=== PATIENT | male | born 2005 | race Caucasian/White ===

== ENCOUNTER 2025-10-25 01:29 | Emergency (ER) | payer OTHER, SELFPAY ==
--- NOTE | 2025-10-25 01:30 | ED.GENADULT ---
HPI - General Adult General Date Seen: 10/25/25 Chief complaint: Dental/Oral/Mouth Injury/Pain Stated complaint: toothpain Time Seen by Provider: 10/25/25 01:30 History of Present Illness HPI narrative: 20-year-old previously healthy male presenting to the ER [facility] with his girlfriend for evaluation of dental pain. For the past couple of days he has been experiencing pain affecting his posterior molar of his right mandible. He says he thinks is probably coming from his wisdom tooth. He does not have any history of dental caries there or known cavities. No injuries. No dental fractures. He was initially experiencing some fairly mild pain which was tolerable and manageable at home with [id number] medications. However tonight the pain got worse and he is now it unable to sleep so he came here to the ER. He is not noticing any swelling of his gums, tongue, under his chin, or his cheek. No fever. No trouble swallowing. No trouble breathing. He has no history of immunosuppression or diabetes. Related Data Home Medications ?Medication ?Instructions ?Recorded ?Confirmed No Known Home Medications 10/25/25 10/25/25 Allergies Allergy/AdvReac Type Severity Reaction Status Date / Time No Known Drug Allergies Allergy Verified 10/25/25 01:35 [facility] Medical History (Updated 10/25/25 @ 01:45 by Edwardo Higgins MD) No significant past medical history Surgical History (Updated 10/25/25 @ 01:36 by Selvin Matthew RN) No significant past surgical history Social History Smoking Status: Current every day smoker Do you use any of these nicotine containing products: Vaping Products Second hand tobacco smoke exposure: Yes How often do you have a drink containing alcohol: never AUDIT-C Alcohol total score: 0 Non-prescribed substance use: marijuana (any form) Exam Narrative: Exam Narrative: Constitutional: Appears well-developed and well-nourished. Alert. Conversant. Non toxic. HENT: Head: Atraumatic. Nose: Nose normal. Mouth/Throat: Oral mucosa is clear and moist. no trismus. Pharynx normal. Tonsils symmetric. No tonsillar enlargement, erythema, or exudate. Eyes: Conjunctivae normal. EOM normal. Pupils equal, round, and reactive to light. No scleral icterus. No trismus. Generally very good dentition. He does have a metal cap or feeling on his left mandibular anterior molar. Otherwise I do not see a lot of dental caries or feelings. I can see that he was some tooth on the right mandible is erupting. Other wisdom teeth are not visible on my exam. I do not see any surrounding gingival erythema, swelling. No gingival abscess. No submandibular swelling. No trismus. No facial swelling. No buccal abscess. Hard palate, soft palate, uvula, pharynx are normal. Neck: Normal range of motion. Neck supple. No tracheal deviation present. Cardiovascular: Normal rate, regular rhythm. No gallop. No friction rub. No murmur heard. Pulmonary/Chest: Effort normal. No stridor. No respiratory distress. No wheezes. No rales. No rhonchi . Musculoskeletal: RUE: Normal range of motion. No tenderness. No deformity LUE: Normal range of motion. No tenderness. No deformity RLE: Normal range of motion. No edema. No tenderness. No deformity LLE: Normal range of motion. No edema. No tenderness. No deformity Lymph: No cervical adenopathy. Neurological: Alert and oriented to person, place, and time. Normal strength. CN II-VII intact. No sensory deficit. GCS eye subscore is 4. GCS verbal subscore is 5. GCS motor subscore is 6. Normal coordination Skin: Skin is warm and dry. No rash noted. No pallor. Normal capillary refill. Psychiatric: Normal mood. Normal affect. Const: Vital Signs, click to edit/add: Vital Signs - 24 hr 10/25/25 01:34 10/25/25 01:48 10/25/25 01:50 Temperature 98.3 F 98.3 F 98.3 F Pulse Rate [Right Pulse Oximeter] 75 70 Respiratory Rate 18 18 Blood Pressure [Ri ght Upper Arm] 170/97 H 162/84 H Pulse Oximetry 99 99 Oxygen Delivery Me thod Room Air Room Air 10/25/25 01:51 Temperature 98.3 F Pulse Rate [Right Pulse Oximeter] 70 Respiratory Rate 18 Blood Pressure [Ri ght Upper Arm] 162/84 H Pulse Oximetry Oxygen Delivery Me thod Course Vital Signs Vital signs: Initial Vital Signs Temperature 98.3 F 10/25/25 01:34 Temperature Source Temporal Artery Scan 10/25/25 01:34 Pulse Rate 75 10/25/25 01:34 Respiratory Rate 18 10/25/25 01:34 Blood Pressure 170/97 H 10/25/25 01:34 Blood Pressure Mean 121 H 10/25/25 01:34 Blood Pressure Position Sitting 10/25/25 01:34 Pulse Oximetry 99 10/25/25 01:34 Oxygen Delivery Method Room Air 10/25/25 01:34 Vital Signs Temperature 98.3 F 10/25/25 01:34 Pulse Rate 75 10/25/25 01:34 Respiratory Rate 18 10/25/25 01:34 Blood Pressure 170/97 H 10/25/25 01:34 Pulse Oximetry 99 10/25/25 01:34 Oxygen Delivery Method Room Air 10/25/25 01:34 Temperature 98.3 F 10/25/25 01:51 Pulse Rate 70 10/25/25 01:51 Respiratory Rate 18 10/25/25 01:51 Blood Pressure 162/84 H 10/25/25 01:51 Pulse Oximetry 99 10/25/25 01:50 Oxygen Delivery Method Room Air 10/25/25 01:50 Medications Administered Medications: Discontinued Medications Generic Name Dose Route Start Last Admin Trade Name Freq PRN Reason Stop Dose Admin Hydrocodone Bitart/Acetaminophen 1 tab 10/25/25 01:42 10/25/25 01:48 Hydrocodone-Acetamin 5-325 Mg 1 Tab PO 10/25/25 01:43 1 tab ONCE ONE Administration Medical Decision Making [facility] Narrative Medical decision making narrative: This patient presents with a tooth ache involving his right mandibular wisdom tooth. The differential diagnosis includes: cracked tooth syndrome, pulpitis, sub-apical abscess, amongst others. I suspect the pain may be related to eruption of the wisdom tooth or possible impaction. There is no abscess detected around the tooth amenable to incision and drainage. There is no evidence of buccinator/canine space infections, significant facial swelling, or Ryder's angina. There are no posterior pharyngeal space infections detected. Suspect pulpitis. Treatment with NSAID, antibiotics. Instymeds prescription for Bucyrus -10 tablets-provided. Will also start the patient on amoxicillin in case there is an evolving pulpitis or other infection here. Opiate precautions reviewed. Follow up with a dentist/certified master locksmith in the coming days is indicated for further work up and treatment. Instructions for return to the ER were reviewed with the patient. Discharge Plan Discharge Clinical Impression: Toothache Patient Disposition: Home, Self-Care Condition: Stable Instructions: Toothache (ED) Additional Instructions: As we discussed, please come back to the ER right away if you have worsening or severe uncontrolled pain, new swelling of your gums, jaw, face, fever, trouble swallowing, or if you have any other concerns. Please follow-up with a dentist as soon as possible for re-evaluation. Right now we suspect that your tooth pain is probably coming from the wisdom tooth on your right lower jaw. Please start on the antibiotics today to help treat potential infections and prevent any infection from developing or getting worse To treat pain you can use [id number] pain medications such as Tylenol or ibuprofen. Use the prescription pain killer (Bucyrus) if needed for pain that is not controlled by other medications. Be careful with Bucyrus because it can cause dizziness, drowsiness, constipation, and can be addictive. Do not drive a car for 6 hours after taking Bucyrus. Prescriptions: No Action No Known Home Medications Follow Up/Referrals: Annika Berger MD [Referring, Family Practice] Stand Alone Forms: [employer] Info Instructions
[2025-10-25 01:34] VITALS: BP 170/97; PULSE 75; RESP 18; TEMP 36.8; O2SAT 99; BMI 31.2
[2025-10-25 01:48] VITALS: TEMP 36.8
[2025-10-25] MEDS: HYDROCODONE-ACETAMIN 5-325 MG 1 TAB PO (01:48)
[2025-10-25 01:50] VITALS: BP 162/84; PULSE 70; RESP 18; TEMP 36.8; O2SAT 99
[2025-10-25 01:51] VITALS: BP 162/84; PULSE 70; RESP 18; TEMP 36.8
== END 2025-10-25 02:08 | disposition home or self-care (01) ==
LOC: ED 02:00
PROVIDERS: Emergency Provider Emergency Medicine
DX: K08.89 Other specified disorders of teeth and supporting structures (principal)
CPT/HCPCS: 99282; 99283; A9270